=== PATIENT | male | born 1980 ===

== ENCOUNTER 2018-09-02 21:29 | Emergency (ER) | payer BC, OTHER ==
[~2018-09-02] VITALS: Ht 165.1 cm; Wt 79.0 kg
[2018-09-03] MEDS ORDERED: SODIUM CHLORIDE 0.9% 1,000 ML IV ONE (02:47)
[2018-09-03] MEDS ORDERED: KETOROLAC 30MG/ML VIAL IV STA (02:47)
[2018-09-03] MEDS ORDERED: ONDANSETRON HCL 4MG/2ML INJ IV STA (02:47)
[2018-09-03 03:06] LABS: HEMATOCRIT. 43.7 % (42.0-52.0); HEMOGLOBIN. 15.1 g/dL (14.0-18.0); MEAN CORPUSCULAR HEMOGLOBIN 30.5 pg (28.0-32.0); MEAN CORPUSCULAR VOLUME 88.4 fL (80.0-94.0); MEAN PLATELET VOLUME 9.7 fl (7.4-10.4); PLATELET 191 x1000/uL (130-400); RED BLOOD CELL COUNT 4.94 mill/uL (4.7-6.1)
[2018-09-03 03:13] LABS: CHLORIDE 106 mEq/L (98-107)
[2018-09-03 05:35] LABS: CLARITY URINE TURBID (CLEAR); COLOR URINE YELLOW (YELLOW); KETONES URINE 1+ (NEGATIVE); LEUKOCYTE ESTERASE URINE TRACE (NEGATIVE); NITRITE URINE NEGATIVE (NEGATIVE); OCCULT BLOOD URINE 3+ (NEGATIVE); PH URINE 5.5 (4.5-8.0); PROTEIN URINE 3+ (NEGATIVE); UROBILINOGEN URINE 0.2 E.U./dL (0.2-1.0)
[2018-09-03 06:01] VITALS: BP 114/71
[2018-09-03 06:02] LABS: PLATELET ESTIMATE NORMAL
== END 2018-09-03 06:05 | disposition home or self-care (01) ==
LOC: ER 21:29
DX: K52.9 Noninfective gastroenteritis and colitis, unspecified (principal); R03.0 Elevated blood-pressure reading, without diagnosis of hypertension
CPT/HCPCS: 36415; 80053; 81003; 83690; 85025; 96361; 96374; 96375; 99283; J1885; J2405; J7030; Z7610